=== PATIENT | female | born 1995 | race Two or more races ===

== ENCOUNTER 2023-03-22 11:05 | Emergency (ER) | payer SELFPAY ==
[2023-03-22 11:38] LABS: BASOPHILS ABSOLUTE AUTO 0.02 K/uL (0.00-0.20); BASOPHILS PERCENT AUTO 0.1 % (0.0-2.0); EOSINOPHILS ABSOLUTE AUTO 0.03 K/uL (0.00-0.50); EOSINOPHILS PERCENT AUTO 0.2 % (0.0-5.0); HEMATOCRIT 37.3 % (34.0-46.0); HEMOGLOBIN 12.6 g/dL (11.7-15.5); LYMPHOCYTES PERCENT AUTO 10.1 % (10.0-50.0); MEAN CORPUSCULAR HEMOGLOBIN 30.5 pg (28.2-33.3); MEAN CORPUSCULAR HGB CONC 33.8 g/dL (31.7-36.0); MEAN CORPUSCULAR VOLUME 90.3 fL (84.0-98.0); MONOCYTES ABSOLUTE AUTO 0.98 K/uL (0.00-1.00); MONOCYTES PERCENT AUTO 6.2 % (2.0-14.0); NEUTROPHILS ABSOLUTE AUTO 13.27 K/uL (1.40-7.00); NEUTROPHILS PERCENT AUTO 83.4 % (45.0-80.0); PLATELET COUNT,PLT 295 K/uL (150-350); RED BLOOD CELL COUNT 4.13 M/uL (3.77-5.09); RED CELL DISTRIBUTION WIDTH 12.5 % (11.2-14.1); WHITE BLOOD CELL COUNT,WBC 15.9 K/uL (4.0-10.2)
[2023-03-22] MEDS ORDERED: Sodium Chloride 0.9% 1,000 ML IV ONE (11:51)
[2023-03-22 11:55] LABS: BILIRUBIN,URINE NEGATIVE (NEGATIVE); COLOR,URINE YELLOW; GLUCOSE,URINE NEGATIVE (NEGATIVE); KETONES,URINE 40 mg/dL (NEGATIVE); LEUKOCYTE ESTERASE,URINE SMALL (NEGATIVE); NITRITE,URINE POSITIVE (NEGATIVE); OCCULT BLOOD,URINE LARGE (NEGATIVE); PROTEIN,URINE 30 mg/dL (NEGATIVE); UROBILINOGEN,URINE 0.2 E.U./dL (0.2-1.0)
[2023-03-22 11:59] LABS: ALBUMIN 3.4 g/dL (3.4-5.0); BILIRUBIN TOTAL 0.4 mg/dL (0.2-1.0); CARBON DIOXIDE,CO2 23.2 mmol/L (21.0-32.0); CREATININE 0.77 mg/dL (0.51-1.17); EST CRCL DRUG DOSING (CG) 93.09 mL/min; POTASSIUM,K 3.4 mmol/L (3.5-5.1); PROTEIN TOTAL,TP 7.9 g/dL (6.4-8.2)
[2023-03-22 12:01] LABS: ANION GAP 15.2 meq/L (7-15)
[2023-03-22 12:14] LABS: APPEARANCE,URINE TURBID
[2023-03-22 12:15] LABS: BACTERIA,URINE MANY /HPF (NONE TO FEW); WBC,URINE 20-30 /HPF
[2023-03-22] MEDS ORDERED: cefTRIAXone 1 GM in Sodium Chloride 0.9% 100 ML IV ONE (12:34)
[2023-03-22] MEDS ORDERED: Potassium Chloride 20 MEQ Tab.ER PO ONE (12:35)
[2023-03-22] MEDS ORDERED: Ondansetron 4 MG/2 ML SDV IVPUSH ONE (12:35)
[2023-03-22] MEDS: Sodium Chloride 0.9% 10 ML Syringe FLUSH PRN ×2 (13:23→13:37)
[2023-03-22] MEDS ORDERED: Ketorolac 15 MG/ML SDV IVPUSH ONE (13:33)
[2023-03-22] MEDS ORDERED: Ketorolac 15 MG/ML SDV ONE (13:34)
== END 2023-03-22 14:14 | disposition home or self-care (01) ==
LOC: LL.ED 11:05
DX: N39.0 Urinary tract infection, site not specified (principal); R31.9 Hematuria, unspecified; Z86.16 Personal history of COVID-19
CPT/HCPCS: 36415; 74019; 80053; 81001; 83605; 83690; 84703; 85025; 87086; 87088; 87186; 96361; 96365; 96375; 99283; 99284-25; A9270-GY; J0696; J1885; J2405; J3490; J7030